=== PATIENT | female | born 1955 | race Caucasian/White ===

== ENCOUNTER → 2016-04-11 | Outpatient (POV) | payer BC | LOC: CANPREPOV → M IRPOV 13:54 | DX: Z53.8 Procedure and treatment not carried out for other reasons (principal) ==

== ENCOUNTER → 2016-08-26 | Outpatient (CLI) | payer BC ==
[~2016-08-26] MED LIST: LIDOCAINE 2% MDV 20 ML VIAL As Ordered ONE; SODIUM TETRADECYL SULFATE(3%)30MG/ML 2ML VIAL (SOTRADECOL) As Ordered ONE
--- NOTE | 2016-08-26 11:35 | REPKIM ---
CLINICAL: Patient with symptomatic varicose veins of bilateral lower extremities with other complications, s/p EVLT of the right leg incompetent GSV and sclerotherapy of collateral varicosities on 02/04/16 presents for possible sclerotherapy of residual varicosity on the right around the knee/calf region. Limited sonographic evaluation of the right lower extremity from the knee to calf with compression ultrasound and color imaging and grayscale imaging performed. Residual varicosity seen over patella is thrombosed. There is no varicosity enlarged for sclerotherapy. IMPRESSION: No need for further intervention on the right. Patient with dilated varicose veins involving the left leg below knee level and around the left medial foot. Diffuse reticular veins seen. Plan to evaluate her left lower extremity reflux study, venous mapping of her varicose veins and also evaluation of deep venous system. Continue conservative management of the left leg including compression stockings and leg elevation. cc: Jeaneth VELEZ
== END | disposition home or self-care (01) ==
LOC: M IRPRO 09:59
DX: I82.491 Acute embolism and thrombosis of other specified deep vein of right lower extremity (principal); I83.813 Varicose veins of bilateral lower extremities with pain

== ENCOUNTER → 2016-09-23 | Outpatient (CLI) | payer BC ==
--- NOTE | 2016-09-23 13:39 | REP ---
Clinical: Left lower extremity pain . Technique: Oliveros scale and color Doppler evaluation using linear high frequency transducer including evaluation for reflux. Findings: Ultrasound examination of the left lower extremity deep venous structures from the common femoral vein to the popliteal vein demonstrates normal compressibility flow and wave patterns in response to respiration and augmentation. There is no evidence for deep venous thrombosis. A Wynn's cyst in the popliteal fossa measures 2.1 x 1.2 x 1.0 cm. Evaluation for reflux demonstrates reflux throughout the greater saphenous vein and lesser saphenous vein. Collateral vessels with reflux are noted communicating with the greater saphenous vein above and below the knee as well as collateral vessels communicating with the lesser saphenous vein demonstrating reflux and communicating with the greater saphenous vein at the level of the calf and ankle. Greater saphenous vein in the proximal thigh measures 7.9 mm diameter with reflux duration of 2.4 seconds. Greater saphenous vein at the mid thigh measures 6.7 mm diameter with reflux duration of 1.6 seconds. Greater saphenous vein at the knee measures 6.6 mm diameter with reflux duration of 1.9 seconds. Lesser saphenous vein measures 3.3 mm diameter with reflux duration of 3.9 seconds. Impression: 1. No evidence for deep venous thrombosis. 2. Reflux as described above likely amendable to EVLT. 3. Wynn's cyst in the popliteal fossa measuring 2.1 x 1.2 x 1.0 cm. Signed by Pankaj Barriga MD 09/23/2016 01:31 P
== END ==
LOC: M RAD 09:02
DX: I83.812 Varicose veins of left lower extremity with pain (principal); M71.22 Synovial cyst of popliteal space [Baker], left knee

== ENCOUNTER 2018-05-29 07:43 | Day surgery (SDC) | payer BC ==
[~2018-05-29] VITALS: Ht 170.2 cm; Wt 65.5 kg
[2018-05-29] MEDS ORDERED: NS 1,000 ML IV ONE (09:00)
[2018-05-29] MEDS ORDERED: PROPOFOL 200 MG/20 ML VIAL As Ordered ONE ×2 (09:14→09:20)
[2018-05-29] MEDS ORDERED: LIDOCAINE 2% INJ 100 MG/5 ML SDV (FOR ANES.) As Ordered ONE (09:14)
--- NOTE | 2018-05-29 09:44 | ROOR ---
Patient Name: Nasrin Manning Procedure Date: 05/29/2018 9:07 AM Date of : 1955 Age: 63 Room: [facility] Gender: Female Note Status: Finalized Procedure: Colonoscopy Indications: Screening for colorectal malignant neoplasm Providers: Shailesh Wilson MD Referring MD: Jeaneth Leblanc NP Requesting Provider: Medicines: Monitored Anesthesia Care Complications: No immediate complications. Procedure: Pre-Anesthesia Assessment: - Prior to the procedure, a History and Physical was performed, and patient medications and allergies were reviewed. The patient is competent. The risks and benefits of the procedure and the sedation options and risks were discussed with the patient. All questions were answered and informed consent was obtained. Patient identification and proposed procedure were verified by the physician, the nurse and the anesthesiologist in the procedure room. Mental Status Examination: alert and oriented. Airway Examination: normal oropharyngeal airway and neck mobility. Respiratory Examination: clear to auscultation. CV Examination: normal. Prophylactic Antibiotics: The patient does not require prophylactic antibiotics. Prior Anticoagulants: The patient has taken no previous anticoagulant or antiplatelet agents. ASA Grade Assessment: I - A normal, healthy patient. After reviewing the risks and benefits, the patient was deemed in satisfactory condition to undergo the procedure. The anesthesia plan was to use monitored anesthesia care (MAC). Immediately prior to administration of medications, the patient was re-assessed for adequacy to receive sedatives. The heart rate, respiratory rate, oxygen saturations, blood pressure, adequacy of pulmonary ventilation, and response to care were monitored throughout the procedure. The physical status of the patient was re-assessed after the procedure. The Colonoscope was introduced through the anus and advanced to the terminal ileum, with identification of the appendiceal orifice and IC valve. The colonoscopy was performed without difficulty. The patient tolerated the procedure well. The quality of the bowel preparation was good. The terminal ileum, ileocecal valve, appendiceal orifice, and rectum were photographed. Scope insertion time was 4 minutes. Scope withdrawal time was 10 minutes. The total duration of the procedure was 14 minutes. Findings: The perianal and digital rectal examinations were normal. The terminal ileum appeared normal. Two sessile polyps were found in the recto-sigmoid colon. The polyps were 2 to 3 mm in size. These polyps were removed with a jumbo cold forceps. Resection and retrieval were complete. Verification of patient identification for the specimen was done by the physician and nurse using the patient's name, date and medical record number. Estimated blood loss was minimal. Non-bleeding external and internal hemorrhoids were found during retroflexion. The hemorrhoids were medium-sized. Impression: - The examined portion of the ileum was normal. - Two 2 to 3 mm polyps at the recto-sigmoid colon, removed with a jumbo cold forceps. Resected and retrieved. - Non-bleeding external and internal hemorrhoids. Recommendation: - Patient has a contact number available for emergencies. The signs and symptoms of potential delayed complications were discussed with the patient. Return to normal activities tomorrow. Written discharge instructions were provided to the patient. - High fiber diet. - Continue present medications. - Await pathology results. - Repeat colonoscopy in 5-10 years for surveillance based on pathology results. - Based on the biopsy results you will receive a phone call from GI clinic in 2-3 weeks to review the pathology results AND/OR your results will be faxed to your Primary care physician. - Return to primary care physician. Shailesh Wilson MD Shailesh Wilson MD 05/29/2018 9:44:54 AM This report has been signed electronically. Number of Addenda: 0 Note Initiated On: 05/29/2018 9:07 AM Estimated Blood Loss: Estimated blood loss was minimal.
[2018-05-29 10:05] VITALS: BP 115/71
== END 2018-05-29 10:16 | disposition home or self-care (01) ==
LOC: M OPP 07:43
PROVIDERS: ATTEND Internal Medicine Gastroenterology
DX: Z12.11 Encounter for screening for malignant neoplasm of colon (principal); D12.7 Benign neoplasm of rectosigmoid junction; K64.8 Other hemorrhoids; Z80.1 Family history of malignant neoplasm of trachea, bronchus and lung